=== PATIENT | female | born 1995 | race Caucasian/White ===

== ENCOUNTER 2021-09-13 10:55 | Emergency (ER) | payer OTHER ==
[2021-09-13 11:50] LABS: Urine Blood Trace-intact (Negative); Urine Glucose Negative (Negative); Urine Protein Negative (Negative); Urine Specific Gravity 1.025 (1.005-1.030)
[2021-09-13 11:56] LABS: Urine Specific Gravity/Preg 1.025 (1.005-1.030)
[2021-09-13 12:12] LABS: Absolute Lymphocytes (CBC) 2.5 K/uL (0.7-4.9); Lymphocytes % 24.5 % (15.3-44.8); MCV 85.7 fL (80-100); MPV 7.3 fL (7.6-11.3); RBC Red Blood Cell Count 4.67 M/uL (3.86-4.86)
[2021-09-13] MEDS ORDERED: NA CHLORIDE 0.9% 1,000 ML ONE (12:29)
[2021-09-13 12:37] LABS: Potassium 3.7 mmol/L (3.5-5.1)
--- NOTE | 2021-09-13 14:55 | RAD REPORT ---
EXAM DESCRIPTION: US - OB Limited - 09/13/2021 2:47 pm CLINICAL HISTORY: with pelvic pain and vaginal spotting COMPARISON: None FINDINGS: The uterus measures 10 x 6 x 6 centimeters A normal-appearing gestational sac is present within the endometrium. Within this is a yolk sac and a pole with a crown-rump length 3 millimeters. Cardiac activity 110 beats per minute. Nabothian cyst within the cervix. 1.8 centimeters cyst right ovary. Left ovary not seen secondary to overlying bowel gas The right and left adnexa unremarkable. No significant free fluid IMPRESSION: Single live intrauterine with an estimated gestational age 6 weeks 0 days BIBIANA May 09, 2022
--- NOTE | 2021-09-13 15:07 | EDPHYS ---
Physician Documentation [facility] Name: Tina Rangel Age: 26 yrs Sex: Female : 1995 Arrival Date: 09/13/2021 Time: 10:58 Bed 20 Private MD: ED Physician Leander Rene HPI: 09/13 17:22 This 26 yrs old Female presents to ER via Ambulatory with complaints of Vaginal kdr Bleeding, + Preg <12wks. 17:22 The estimated gestational age is 6 weeks. course: care: at a clinic, kdr Leakage of Fluid: Ultrasound: the patient has not had an ultrasound, Risk/complications: no obvious risks or complications are appreciated. Previous pregnancies: in previous pregnancies patient has had Associated signs and symptoms: Pertinent positives: vaginal bleeding, Pertinent negatives: abdominal pain, chest pain, diarrhea, dysuria, fever, frequency, nausea, ruptured membranes, seizure, shortness of breath, vaginal discharge. The patient has not experienced similar symptoms in the past. The patient has been recently seen by a physician: the patient's primary care provider. Patient had spotting this morning on her toilet paper otherwise she has had no significant related signs or symptoms. 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 - Social history:: Smoking status: Reported history of juuling and/or vaping. ROS: 17:22 Constitutional: Negative for fever, chills, and weight loss, Eyes: Negative for injury, kdr pain, redness, and discharge, ENT: Negative for injury, pain, and discharge, Neck: Negative for injury, pain, and swelling, Cardiovascular: Negative for chest pain, palpitations, and edema, Respiratory: Negative for shortness of breath, cough, wheezing, and pleuritic chest pain, Abdomen/GI: Negative for abdominal pain, nausea, vomiting, diarrhea, and constipation, Back: Negative for injury and pain, MS/Extremity: Negative for injury and deformity, Skin: Negative for injury, rash, and discoloration, Neuro: Negative for headache, weakness, numbness, tingling, and seizure activity. Psych: Negative for depression, anxiety, suicide ideation, homicidal ideation, and hallucinations, Allergy/Immunology: Negative for hives, rash, and allergies, Endocrine: Negative for neck swelling, polydipsia, polyuria, polyphagia, and marked weight changes, Hematologic/Lymphatic: Negative for swollen nodes, abnormal bleeding, and unusual bruising. 17:22 : Positive for vaginal bleeding, Negative for urinary frequency, small amounts, hematuria, pelvic pain, flank pain, vaginal discharge, vaginal itching, menstrual abnormality, missed period, testicular pain Exam: 17:22 Constitutional: This is a well developed, well nourished patient who is awake, alert, kdr and in no acute distress. Head/Face: Normocephalic, atraumatic. Eyes: Pupils equal round and reactive to light, extra-ocular motions intact. Lids and lashes normal. Conjunctiva and sclera are non-icteric and not injected. Cornea within normal limits. Periorbital areas with no swelling, redness, or edema. Neck: Trachea midline, no thyromegaly or masses palpated, and no cervical lymphadenopathy. Supple, full range of motion without nuchal rigidity, or vertebral point tenderness. No Meningismus. Chest/axilla: Normal chest wall appearance and motion. Nontender with no deformity. No lesions are appreciated. Cardiovascular: Regular rate and rhythm with a normal S1 and S2. No gallops, murmurs, or rubs. Normal PMI, no JVD. No pulse deficits. Respiratory: Lungs have equal breath sounds bilaterally, clear to auscultation and percussion. No rales, rhonchi or wheezes noted. No increased work of breathing, no retractions or nasal flaring. Abdomen/GI: Soft, non-tender, with normal bowel sounds. No distension or tympany. No guarding or rebound. No evidence of tenderness throughout. Back: No spinal tenderness. No costovertebral tenderness. Full range of motion. Skin: Warm, dry with normal turgor. Normal color with no rashes, no lesions, and no evidence of cellulitis. MS/ Extremity: Pulses equal, no cyanosis. Neurovascular intact. Full, normal range of motion. Neuro: Awake and alert, GCS 15, oriented to person, place, time, and situation. Cranial nerves II-XII grossly intact. Motor strength 5/5 in all extremities. Sensory grossly intact. Cerebellar exam normal. Normal gait. Psych: Awake, alert, with orientation to person, place and time. Behavior, mood, and affect are within normal limits. Vital Signs: 11:25 BP 111 / 69; Pulse 94; Resp 16; Temp 97.6; Pulse Ox 100% ; Weight 90.72 kg; Height 5 vg1 ft. 5 in. (165.10 cm); Pain 0/10; 11:25 Body Mass Index 33.28 (90.72 kg, 165.10 cm) vg1 MDM: 15:07 Patient medically screened. kdr 17:22 Data reviewed: vital signs, nurses notes, lab test result(s), radiologic studies. kdr Counseling: I had a detailed discussion with the patient and/or guardian regarding: the historical points, exam findings, and any diagnostic results supporting the discharge/admit diagnosis, lab results, radiology results, the need for outpatient follow up. 09/13 11:30 Order name: Abo/rh Typing; Complete Time: 13:24 kdr 09/13 11:30 Order name: Basic Metabolic Panel; Complete Time: 13:24 kdr 09/13 11:30 Order name: CBC with Diff; Complete Time: 12:20 kdr 09/13 11:30 Order name: Quantitative Hcg; Complete Time: 13:24 kdr 09/13 11:51 Order name: Urine Dipstick-Ancillary; Complete Time: 12:20 EDMS 09/13 11:54 Order name: Urine --Ancillary (enter results); Complete Time: 12:20 eb 09/13 11:30 Order name: IV Saline Lock; Complete Time: 11:59 kdr 09/13 11:30 Order name: Labs collected and sent; Complete Time: 11:59 kdr 09/13 11:30 Order name: NPO; Complete Time: 11:59 kdr 09/13 11:30 Order name: Urine Dipstick-Ancillary (obtain specimen); Complete Time: 12:13 kdr 09/13 13:24 Order name: US OB Limited; Complete Time: 14:57 kdr 09/13 14:51 Order name: Transvaginal OB EDMS Administered Medications: 12:24 Drug: NS 0.9% 1000 ml Route: IV; Rate: 1 bolus; Site: left femoral; sebastian Point of Care Testing: Urine : 15:42 hCG Reading: Positive; sebastian Disposition Summary: 09/13/21 15:07 Discharge Ordered Location: Home kdr Problem: new kdr Symptoms: have improved kdr Condition: Stable kdr Diagnosis - Threatened kdr - Abnormal uterine and vaginal bleeding, unspecified kdr Followup: kdr - With: Private Physician - When: 2 - 3 days - Reason: If symptoms return, Further diagnostic work-up, Recheck today's complaints, Continuance of care, Re-evaluation by your physician Discharge Instructions: - Discharge Summary Sheet kdr - Threatened Miscarriage kdr - Vaginal Bleeding During , First Trimester kdr Forms: - Medication Reconciliation Form kdr - Thank You Letter kdr Signatures: Dispatcher [employer] Leander Wagner MD MD kdr Rosa Mahan RN RN vg1 Quynh-StageShaye esquivel RN RN sebastian
--- NOTE | 2021-09-13 15:07 | ER ---
Nurse's Notes [facility] Name: Tina Rangel Age: 26 yrs Sex: Female : 1995 Arrival Date: 09/13/2021 Time: 10:58 Bed 20 Private MD: Diagnosis: Threatened ;Abnormal uterine and vaginal bleeding, unspecified Presentation: 09/13 11:25 Chief complaint: Patient states: is approximately 6 weeks and has an OB appt vg1 on September 17, states light pink bleeding with clear discharge began today. Denies ABD pain. Coronavirus screen: Vaccine status: Patient reports being unvaccinated. Client denies travel out of the [place] in the last 14 days. Ebola Screen: Patient denies exposure to infectious person. Patient denies travel to an Ebola-affected area in the 21 days before illness onset. Initial Sepsis Screen: Does the patient meet any 2 criteria? No. Patient's initial sepsis screen is negative. Does the patient have a suspected source of infection? No. Patient's initial sepsis screen is negative. Risk Assessment: Do you want to hurt yourself or someone else? Patient reports no desire to harm self or others. Onset of symptoms was September 13, 2021. 11:25 Method Of Arrival: Ambulatory vg1 11:25 Acuity: SHAHEED 3 vg1 Triage Assessment: 11:27 General: Appears uncomfortable, Behavior is calm, cooperative. Pain: Denies pain. : vg1 Reports vaginal bleeding that is bright red, light flow. 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 - Social history:: Smoking status: Reported history of juuling and/or vaping. Screenin:39 Abuse screen: Denies threats or abuse. Denies injuries from another. Nutritional sebastian screening: No deficits noted. Tuberculosis screening: No symptoms or risk factors identified. Fall Risk None identified. Assessment: 15:39 Obstetrical Assessment: Patient reports vaginal spotting. sebastian Vital Signs: 11:25 BP 111 / 69; Pulse 94; Resp 16; Temp 97.6; Pulse Ox 100% ; Weight 90.72 kg; Height 5 vg1 ft. 5 in. (165.10 cm); Pain 0/10; 11:25 Body Mass Index 33.28 (90.72 kg, 165.10 cm) vg1 Vitals: 15:42 Heart Tones unable to detect </ = to 6 weeks. sebastian ED Course: 10:58 Patient arrived in ED. mr 11:27 Triage completed. vg1 11:27 Arm band placed on. vg1 11:29 Leander Rene MD is Attending Physician. kdr 11:32 Shaye Grant, RN is Primary Nurse. sebastian 13:58 US OB Limited In Process Unspecified. EDMS 14:51 Transvaginal OB In Process Unspecified. EDMS 15:39 Patient has correct armband on for positive identification. Bed in low position. sebastian 15:39 No provider procedures requiring assistance completed. Inserted saline lock: 20 gauge sebastian in left forearm, using aseptic technique. IV discontinued, intact, Pressure dressing applied. Administered Medications: 12:24 Drug: NS 0.9% 1000 ml Route: IV; Rate: 1 bolus; Site: left femoral; sebastian Medication: 15:39 VIS not applicable for this client. sebastian Point of Care Testing: Urine : 15:42 hCG Reading: Positive; sebastian Outcome: 15:07 [facility] 15:39 Discharged to home ambulatory. sebastian 15:39 Condition: good 15:39 Discharge instructions given to patient. 15:43 Patient left the ED. sebastian Signatures: Dispatcher [employer] EDMT Leander Rene MD MD kdr Rivera, Leonarda guevara Rosa Mahan, RN RN vg1 Shaye Grant RN RN sebastian Corrections: (The following items were deleted from the chart) 15:43 15:42 Heart Tones unable to detect <= to 6 weeks. sebastian sebastian
[2021-09-13 15:52] VITALS: BP 111/69; TEMP 97.6; O2SAT 100
--- NOTE | 2021-09-14 21:17 | RAD REPORT ---
EXAM DESCRIPTION: US - Transvaginal OB - 09/13/2021 2:50 pm CLINICAL HISTORY: with pelvic pain and vaginal spotting COMPARISON: None FINDINGS: The uterus measures 10 x 6 x 6 centimeters A normal-appearing gestational sac is present within the endometrium. Within this is a yolk sac and a pole with a crown-rump length 3 millimeters. Cardiac activity 110 beats per minute. Nabothian cyst within the cervix. 1.8 centimeters cyst right ovary. Left ovary not seen secondary to overlying bowel gas The right and left adnexa unremarkable. No significant free fluid IMPRESSION: Single live intrauterine with an estimated gestational age 6 weeks 0 days BIBIANA May 09, 2022
== END 2021-09-13 15:43 | disposition home or self-care (01) ==
LOC: ER 10:55
DX: O20.0 Threatened abortion (principal); Z3A.01 Less than 8 weeks gestation of pregnancy
CPT/HCPCS: 85025; 80048; 36415; 86900; 81025; 86901; 84702; 81003; 76815; 76817; 99284; J7030